=== PATIENT | female | born 1945 | race Two or more races ===

== ENCOUNTER 2017-09-16 12:48 | Inpatient (IN) | payer OTHER ==
[2017-09-16] MEDS: TRANEXAMIC ACID 1,000 MG in D5W 100 ML AT CLOSURE X1 IVPB
[2017-09-16] MEDS: CLINDAMYCIN 900 MG/D5W (PMX) 50 ML IVPB (06:30)
[~2017-09-16 12:48] MED LIST: LIDOCAINE 2% (SDV) 5 ML INJ
[2017-09-16] MEDS ORDERED: POLYMYXIN B 500000 UNIT INJ (14:25)
[2017-09-16] MEDS ORDERED: BACITRACIN 50000 UNITS INJ (14:27)
[2017-09-16] MEDS ORDERED: PROPOFOL 20 ML (15:55)
[2017-09-16] MEDS ORDERED: FENTAnyl 50 MCG/ML VIAL (15:55)
[2017-09-16] MEDS ORDERED: MIDAZOLAM 1 MG/ML 2 ML INJ (15:55)
[2017-09-16] MEDS ORDERED: ROCURONIUM 50 MG INJ (15:55)
[2017-09-16] MEDS ORDERED: FENTAnyl 50 MCG/ML VIAL IV ×3 (16:00)
[2017-09-16] MEDS ORDERED: HYDROmorphONE (0.2 MG/ML) 10ML SYG IV ×3 (16:00)
[2017-09-16] MEDS ORDERED: MEPERIDINE 25 MG INJ IV (16:00)
[2017-09-16] MEDS ORDERED: DIPHENHYDRAMINE 50 MG INJ IV ×2 (16:00→19:00)
[2017-09-16] MEDS ORDERED: ONDANSETRON 4 MG INJ IV (16:00)
[2017-09-16] MEDS ORDERED: hydrALAzine 20 MG INJ IV (16:00)
[2017-09-16] MEDS ORDERED: LABETALOL HCL 20MG INJ IV (16:00)
[2017-09-16] MEDS ORDERED: MIDAZOLAM 1 MG/ML 2 ML INJ IV (16:00)
[2017-09-16] MEDS ORDERED: METOCLOPRAMIDE 10 MG INJ IV (16:00)
[2017-09-16] MEDS ORDERED: ALBUTEROL 0.083% (NEB) 2.5 MG/3 ML AMP HHN (16:00)
[2017-09-16] MEDS ORDERED: KETOROLAC 30 MG INJ IV (16:00)
[2017-09-16] MEDS ORDERED: EPHEDrine SULFATE 50 MG/5 ML SYG IV (16:00)
[2017-09-16] MEDS ORDERED: OXYCODONE/ACETAMINOPHEN (5/325) TAB PO ×2 (16:00)
[2017-09-16] MEDS ORDERED: morphine 10 MG INJ (16:57)
[2017-09-16] MEDS ORDERED: LABETALOL HCL 20MG INJ (16:57)
[2017-09-16] MEDS: TRANEXAMIC ACID 1,000 MG in D5W 100 ML AT INCISION X1 IVPB (17:10)
[2017-09-16] MEDS ORDERED: DEXAMETHASONE 4 MG/ML 1 ML INJ (18:15)
[2017-09-16] MEDS ORDERED: KETOROLAC 30 MG INJ (18:15)
[2017-09-16] MEDS ORDERED: ROPIVACAINE 0.5 % 30 ML VIAL (18:15)
[2017-09-16] MEDS ORDERED: ONDANSETRON 4 MG INJ (18:15)
[2017-09-16] MEDS ORDERED: SUGAMMADEX SODIUM 200 MG/2 ML VIAL IV (18:15)
[2017-09-16] MEDS ORDERED: BETHANECHOL 25 MG TAB PO (19:00)
[2017-09-16] MEDS ORDERED: ZOLPIDEM 5 MG TAB PO (19:00)
[2017-09-16] MEDS ORDERED: SENNA/DOCUSATE NA (8.6MG/50MG) TAB PO (19:00)
[2017-09-16] MEDS ORDERED: BISACODYL 10 MG SUPP PR (19:00)
[2017-09-16] MEDS ORDERED: NALOXONE (0.4 MG/ML) INJ IV (19:00)
[2017-09-16] MEDS ORDERED: NA PHOSPHATE/BIPHOS 133 ML ENEMA PR (19:00)
[2017-09-16] MEDS ORDERED: MAGNESIUM HYDROXIDE 30ML CUP PO (19:00)
[2017-09-16] MEDS: DOCUSATE SODIUM 100 MG CAP PO (19:21)
[2017-09-16] MEDS: ONDANSETRON 4 MG INJ IV (19:21)
[2017-09-16] MEDS: SOD CHLORIDE 0.9% 1,000 ML IV (19:21)
[2017-09-16] MEDS: ASPIRIN (EC) 325 MG TAB PO (19:21)
[2017-09-16] MEDS: CELECOXIB 100 MG CAP PO (21:00)
[2017-09-16] MEDS: GABAPENTIN 100 MG CAP PO (21:00)
[2017-09-16] MEDS: KETOROLAC 15 MG INJ IV (21:14)
[2017-09-17] MEDS: ONDANSETRON 4 MG INJ IV ×3 (01:05→13:26)
[2017-09-17 05:51] LABS: ADD MAN DIFF? NO
[2017-09-17 05:58] LABS: BASOPHILS % 0.1 % (0.0-2.0); HEMATOCRIT 28.2 % (37.0-47.0); HEMOGLOBIN 8.9 g/dl (12.0-16.0); LYMPHOCYTES # 0.7 10^3/ul (0.8-2.9); MEAN CORPUSCULAR HEMOGLOBIN 24.1 pg (29.0-33.0); MEAN CORPUSCULAR HGB CONC 31.6 g/dl (32.0-37.0); MEAN CORPUSCULAR VOLUME 76.2 fl (82.0-101.0); MEAN PLATELET VOLUME 10.9 fl (7.4-10.4); MONOCYTE # 0.3 10^3/ul (0.3-0.9); MONOCYTES % 3.2 % (0.0-11.0); NEUTROPHIL # 7.5 10^3/ul (1.6-7.5); NEUTROPHILS % 88.1 % (39.0-77.0); PLATELET COUNT 270 10^3/UL (140-415); RED CELL DISTRIBUTION WIDTH 15.3 % (11.5-14.5)
[2017-09-17 05:58] LABS: WHITE BLOOD COUNT 8.5 10^3/ul (4.8-10.8)
[2017-09-17] MEDS: SOD CHLORIDE 0.9% 1,000 ML IV ×3 (06:01→23:50)
[2017-09-17] MEDS: VANCOMYCIN 1 GM (PMX) 250 ML IVPB ×2 (06:06→18:22)
[2017-09-17 06:31] LABS: ANION GAP 13 (8-16); BLOOD UREA NITROGEN 17 mg/dl (7-20); CALCIUM 8.5 mg/dl (8.4-10.2); CARBON DIOXIDE 25 mmol/L (21-31); CHLORIDE 103 mmol/L (97-110); CREATININE 0.75 mg/dl (0.44-1.00); GLUCOSE 204 mg/dl (70-220); POTASSIUM 4.7 mmol/L (3.5-5.1); SODIUM 136 mmol/L (135-144)
[2017-09-17] MEDS: FERROUS FUMARATE (SR) TAB PO ×2 (08:52→19:57)
[2017-09-17] MEDS: DOCUSATE SODIUM 100 MG CAP PO ×2 (08:52→20:07)
[2017-09-17] MEDS: CELECOXIB 100 MG CAP PO ×2 (08:52→19:56)
[2017-09-17] MEDS: oxyCODONE 5 MG TAB PO ×2 (08:52→19:54)
[2017-09-17] MEDS: GABAPENTIN 100 MG CAP PO ×2 (08:52→19:57)
[2017-09-17] MEDS: ASPIRIN (EC) 325 MG TAB PO (08:53)
[2017-09-17] MEDS ORDERED: GLUCOSE GEL 15 GRAM TUBE BUCCAL (10:30)
[2017-09-17] MEDS ORDERED: DEXTROSE 50% 50 ML SYRINGE IV ×2 (10:30)
[2017-09-17] MEDS ORDERED: GLUCAGON 1 MG INJ IM (10:30)
[2017-09-17] MEDS ORDERED: GLUCOSE GEL 15 GRAM TUBE PO ×2 (10:30)
[2017-09-17 10:51] LABS: HEMOGLOBIN A1C 6.8 % (0-5.9)
[2017-09-17] MEDS: LOSARTAN 25 MG TAB PO (11:34)
[2017-09-17] MEDS: TIMOLOL 0.5% 5 ML OPH BOTH EYES ×2 (11:35→20:06)
[2017-09-17] MEDS: KETOROLAC 15 MG INJ IV ×2 (11:42→21:52)
[2017-09-17 12:49] LABS: IRON 20 ug/dl (35-150)
[2017-09-17 12:58] LABS: % IRON SATURATION 6 % SAT (22-52); TOTAL IRON BINDING CAPACITY 327 ug/dl (241-421)
[2017-09-17] MEDS: INSULIN ASPART [NOVOLOG] 3 ML PEN SC ×3 (13:27→20:14)
[2017-09-17] MEDS ORDERED: ACETAMINOPHEN 325 MG TAB PO (13:30)
[2017-09-17] MEDS: ALBUTEROL/IPRATROPIUM (NEB) 3 ML AMP HHN ×2 (13:56→20:53)
[2017-09-17 14:08] LABS: AADO2 Arterial 35.5 mmHg (7.0-24.0); Allen Test ACCEPTAB; Arterial Base Excess 1.7 mmol/L (-3.0-3); Arterial Blood Gas Oxygen Sat 92.5 mmHG (95.0-100.0); Arterial COHb 0.3 % (0.0-3.0); Arterial MetHb 0.2 % (0.0-1.5); Arterial Total Hemglobin 9.6 g/dl (12.0-18.0); Arterial pCO2 39.3 mmhg (35-45); MODE ROOM AIR; Site Right Radial
[2017-09-17 14:10] LABS: FERRITIN 25.5 ng/ml (11.1-264.0)
[2017-09-17] MEDS: SOD FERRIC GLUC COMPLX 125 MG in SOD CHLORIDE 0.9% 100 ML IVPB (15:36)
[2017-09-17] MEDS: metFORMIN 500 MG TAB PO (18:24)
[2017-09-17] MEDS: ALPRAZOLAM 0.5 MG TAB PO (19:57)
[2017-09-17] MEDS: LATANOPROST 0.005% 2.5 ML OPH BOTH EYES (20:03)
[2017-09-17] MEDS: ATORVASTATIN 40 MG TAB PO (20:17)
[2017-09-18] MEDS: ALBUTEROL/IPRATROPIUM (NEB) 3 ML AMP HHN ×4 (01:03→12:27)
[2017-09-18] MEDS: ACCU-CHEK XX (01:19)
[2017-09-18 05:21] LABS: ADD MAN DIFF? NO
[2017-09-18 05:26] LABS: WHITE BLOOD COUNT 10.1 10^3/ul (4.8-10.8)
[2017-09-18 05:26] LABS: BASOPHILS % 0.3 % (0.0-2.0); EOSINOPHILS # 0.1 10^3/ul (0.0-0.5); EOSINOPHILS % 0.5 % (0.0-7.0); HEMATOCRIT 29.2 % (37.0-47.0); HEMOGLOBIN 9.1 g/dl (12.0-16.0); LYMPHOCYTES # 1.6 10^3/ul (0.8-2.9); LYMPHOCYTES % 16.1 % (15.0-51.0); MEAN CORPUSCULAR HEMOGLOBIN 23.8 pg (29.0-33.0); MEAN CORPUSCULAR HGB CONC 31.2 g/dl (32.0-37.0); MEAN CORPUSCULAR VOLUME 76.4 fl (82.0-101.0); MEAN PLATELET VOLUME 10.3 fl (7.4-10.4); MONOCYTES % 9.7 % (0.0-11.0); NEUTROPHIL # 7.4 10^3/ul (1.6-7.5); NEUTROPHILS % 73.1 % (39.0-77.0); PLATELET COUNT 336 10^3/UL (140-415); RED BLOOD COUNT 3.82 10^6/ul (4.20-5.40); RED CELL DISTRIBUTION WIDTH 15.6 % (11.5-14.5)
[2017-09-18] MEDS: oxyCODONE 5 MG TAB PO ×4 (05:38→16:45)
[2017-09-18] MEDS: PANTOPRAZOLE (EC) 40 MG TAB PO (05:38)
[2017-09-18 06:08] LABS: ANION GAP 12 (8-16); BLOOD UREA NITROGEN 14 mg/dl (7-20); CALCIUM 8.9 mg/dl (8.4-10.2); CARBON DIOXIDE 25 mmol/L (21-31); CHLORIDE 105 mmol/L (97-110); GLUCOSE 173 mg/dl (70-220); POTASSIUM 4.3 mmol/L (3.5-5.1); SODIUM 138 mmol/L (135-144)
[2017-09-18] MEDS: LEVOTHYROXINE 75 MCG TAB PO (06:31)
[2017-09-18] MEDS: metFORMIN 500 MG TAB PO (08:40)
[2017-09-18] MEDS: ASPIRIN (EC) 325 MG TAB PO (08:45)
[2017-09-18] MEDS: CELECOXIB 100 MG CAP PO (08:45)
[2017-09-18] MEDS: FERROUS FUMARATE (SR) TAB PO (08:45)
[2017-09-18] MEDS: DOCUSATE SODIUM 100 MG CAP PO (08:45)
[2017-09-18] MEDS: GABAPENTIN 100 MG CAP PO (08:45)
[2017-09-18] MEDS: LOSARTAN 25 MG TAB PO (08:45)
[2017-09-18] MEDS: TIMOLOL 0.5% 5 ML OPH BOTH EYES (08:46)
[2017-09-18] MEDS: INSULIN ASPART [NOVOLOG] 3 ML PEN SC ×2 (08:49→13:28)
[2017-09-18] MEDS: KETOROLAC 15 MG INJ IV (11:09)
[2017-09-18] MEDS: SOD FERRIC GLUC COMPLX 125 MG in SOD CHLORIDE 0.9% 100 ML IVPB (15:26)
== END 2017-09-18 17:30 | disposition home health service (06) | DRG 470 ==
LOC: REC 12:48 → MS1 16:30 → REC 16:50 → MS1 20:30
PROVIDERS: Orthopaedic Surgery
PROC: 0SRD0J9 Replacement of Left Knee Joint with Synthetic Substitute, Cemented, Open Approach (ICD-10-PCS; principal; 2017-09-16 15:00)
DX: M17.12 Unilateral primary osteoarthritis, left knee (principal); E11.9 Type 2 diabetes mellitus without complications; I10 Essential (primary) hypertension; E03.9 Hypothyroidism, unspecified; D50.9 Iron deficiency anemia, unspecified; E78.5 Hyperlipidemia, unspecified; F41.9 Anxiety disorder, unspecified; E66.9 Obesity, unspecified; Z68.33 Body mass index [BMI] 33.0-33.9, adult
CPT/HCPCS: 36600; 71045; 73560; 80048; 82728; 82803; 82962; 83036; 83540; 85025; 86850; 86900; 86901; 87081; 88305; 88311; 94640; 94664; 97110; 97116; 97163; 97530